=== PATIENT | female | born 1950 | race African-American/Black ===

== ENCOUNTER → 2016-11-30 | Outpatient (CLI) | payer MEDICARE ==
[~2016-11-30] MED LIST: ZOLPIDEM 5 MG TABLET. PO ONE
--- NOTE | 2016-12-01 10:15 | SLEEP ---
DATE OF STUDY: 11/30/2016 ATTENDING PHYSICIAN: Dr. Yelitza Valdez. The patient is 66 years old who weighs 161 pounds with a BMI of 29. The patient's Woodbine score was 11. A split night study was performed at [facility]. During the night study, the patient spent 469 minutes in bed and slept for 357 minutes with a sleep efficiency of 76%. Sleep latency was 87 minutes with a REM latency of 441 minutes. Overall, sleep architecture showed increased stage I sleep, normal stage II sleep, increased slow wave and reduced REM sleep. During the initial diagnostic portion of the study, the patient slept for 259 minutes. During this time, there were 36 obstructive apneas, 2 mixed and 2 central apneas and 24 hypopneas. The patient's apnea hypopnea index was 15 per hour, supine index 16 per hour. REM sleep was not seen during the diagnostic portion. EKG monitoring revealed normal sinus rhythm, average heart rate was 57 beats per minute. No sustained arrhythmias were observed. Nocturnal oximetry study revealed a mean oxygen saturation of 96% with the lowest of 81%. Only 1% of time oxygen saturation remained between 80% and 89%. PLMS were seen at the index of 7 per hour and 2 per hour caused EEG arousals. The patient met the criteria for CPAP initiation. Was started at 5 cm water and titrated up to 9 cm of water. At the final pressure, the patient slept for 49 minutes. The patient had supine as well as REM sleep. The patient's AHI was reduced to 8 per hour. However, although obstructive apneas and hypopneas were eliminated and few treatment emergent central apneas were observed causing AHI to be 8 per hour. The central apneas usually disappear over next few months. Oxygen saturation remained above 96% at the same final pressure. The patient used medium size nasal pillows. IMPRESSION: 1. Mild sleep apnea-hypopnea syndrome with moderate increase during supine sleep. Absence of REM sleep during the diagnostic portion can underestimate the severity of sleep apnea. 2. No clinically significant nocturnal hypoxia. 3. No clinically significant PLMS. RECOMMENDATIONS: 1. CPAP at 9 cm water should be used on a nightly basis. 2. Follow up in 4-6 weeks to assess compliance with CPAP and to document clinical improvement. I would also recommend review of the download data to make sure the central apnea index is improved in subsequent months. 3. Avoid [employer] depressants. 4. Caution regarding driving until symptoms of sleep apnea resolve with the use of CPAP. 5. Weight loss is advised. CARISSA GONZALEZ MD DR: GENIA/martha JOB#: [id number] / [id number] YELITZA Dinh MD
== END | disposition home or self-care (01) ==
LOC: SLPLAB 18:37
PROVIDERS: ATTEND Family Medicine
DX: G47.33 Obstructive sleep apnea (adult) (pediatric) (principal)
CPT/HCPCS: 95810